=== PATIENT | female | born 1995 | race Caucasian/White ===

== ENCOUNTER 2017-07-14 16:30 | Inpatient (IN) | payer MEDICAID ==
[~2017-07-14] VITALS: Ht 165.1 cm; Wt 51.3 kg
[2017-07-14] MEDS ORDERED: LORazepam 2 MG TABLET PO PRN (21:30)
[2017-07-14] MEDS ORDERED: HALOPERIDOL 5 MG TABLET PO PRN (21:30)
[2017-07-14 21:57] VITALS: BP 118/78
[2017-07-14] MEDS: ZOLPIDEM TARTRATE 10 MG TABLET PO PRN (22:43)
[2017-07-15 01:19] VITALS: BP 114/82
[2017-07-15 08:32] LABS: BASOPHILS % (AUTO) 0.6 % (0.0-2.0); EOSINOPHILS % (AUTO) 1.8 % (1.0-6.0); HEMATOCRIT 39.5 % (36-46); HEMOGLOBIN 14.1 g/dL (12.0-16.0); LYMPHOCYTES # (AUTO) 2.8 K/uL (1.0-4.8); MEAN CORPUSCULAR HEMOGLOBIN 32.3 pg (26.0-34.0); MEAN CORPUSCULAR HGB CONC 35.7 G/dL (31.0-37.0); MEAN CORPUSCULAR VOLUME 90 fL (80-100); MONOCYTES # (AUTO) 0.5 K/uL (0.1-1.0); MONOCYTES % (AUTO) 8.5 % (2.0-9.0); NEUTROPHILS # (AUTO) 2.9 K/uL (1.8-7.7); NEUTROPHILS % (AUTO) 46.1 % (40.0-70.0); PLATELET COUNT (AUTO) 192 K/uL (150-450); RED BLOOD CELL COUNT(AUTO) 4.37 MIL/uL (4.00-5.20); RED CELL DISTRIBUTION WIDTH 13.1 % (11.5-14.5)
[2017-07-15 08:44] VITALS: BP 107/70
[2017-07-15 08:56] LABS: ALANINE AMINOTRANSFERASE 20 U/L (12-78); ALBUMIN 3.6 g/dL (3.4-5.0); ALKALINE PHOSPHATASE 65 U/L (46-116); ANION GAP 7 mmol/L (8-16); ASPARTATE AMINOTRANSFERASE 15 U/L (15-37); BILIRUBIN,TOTAL 1.1 mg/dL (0.1-1.0); CARBON DIOXIDE 29 mmol/L (22-29); CHLORIDE 104 mmol/L (98-107); CHOLESTEROL 135 mg/dL (131-200); CREATININE 1.01 mg/dL (0.60-1.30); FREE T4 (FREE THYROXINE) 1.22 ng/dL (0.76-1.46); GLOMERULAR FILTR. RATE CALC > 60 mL/min (>60); GLUCOSE,RANDOM 85 mg/dL (70-110); HCG,QUANTITATIVE < 1 mIU/mL (0-6); HDL CHOLESTEROL 69 mg/dL (40-60); LDL CHOL (CALC.) 59 mg/dL (0-130); POTASSIUM 3.9 mmol/L (3.5-5.1); SODIUM SERUM 140 mmol/L (136-145); THYROID STIMULATING HORMONE 2.02 uIU/mL (0.36-3.74); TOTAL PROTEIN, SERUM 7.4 g/dL (6.4-8.2); TRIGLYCERIDES 36 mg/dL (15-150); UREA NITROGEN, BLOOD 9 mg/dL (7-18)
[2017-07-15 09:12] LABS: HEMOGLOBIN A1C 5.7 % (4.5-6.2)
[2017-07-15 16:07] VITALS: BP 112/71
[2017-07-15] MEDS: ZOLPIDEM TARTRATE 10 MG TABLET PO PRN (20:37)
[2017-07-16 00:48] VITALS: BP 105/61
[2017-07-16 08:00] VITALS: BP 108/66
[2017-07-16] MEDS: FLUoxetine HCL 20 MG CAPSULE PO SCH (08:45)
[2017-07-16 16:08] VITALS: BP 113/79
[2017-07-16] MEDS: ZOLPIDEM TARTRATE 10 MG TABLET PO PRN (22:05)
[2017-07-17 06:10] VITALS: BP 100/72
[2017-07-17 08:14] VITALS: BP 126/78
[2017-07-17] MEDS: FLUoxetine HCL 20 MG CAPSULE PO SCH (08:23)
[2017-07-17] MEDS ORDERED: FLUO-191 PO (09:47)
== END 2017-07-17 10:50 | disposition home or self-care (01) | DRG 751 ==
LOC: B2S 21:22
PROVIDERS: ADMIT Psychiatry & Neurology Psychiatry; ATTEND Psychiatry & Neurology Psychiatry
DX: F33.2 Major depressive disorder, recurrent severe without psychotic features (principal); R45.851 Suicidal ideations; Z91.19 Patient's noncompliance with other medical treatment and regimen; G47.00 Insomnia, unspecified; E80.6 Other disorders of bilirubin metabolism; R45.87 Impulsiveness
CPT/HCPCS: 83036; 84439; 84443